=== PATIENT | male | born 1955 | race Hispanic/Latino ===

== ENCOUNTER 2018-03-26 14:16 | Inpatient (IN) | payer OTHER ==
[~2018-03-26] VITALS: Ht 431.8 cm; Wt 81.2 kg
[~2018-03-26 14:16] MED LIST: ALBUMIN (HUMAN) 25% 50 ML IV ONE; AMINOCAPROIC ACID 250 MG/ML 20 ML VIAL IV ONE; CALCIUM CHLORIDE 100 MG/ML 10 ML SYG IVP ONE; HEPARIN SODIUM 1000UNIT/ML 10ML VIAL IV ONE; MANNITOL 25% 50ML VIAL IV ONE; PHENYLEPHRINE HCL 10 MG/ML 1ML VIAL IV ONE; SODIUM BICARB 8.4% 50ML SYRINGE IVP ONE
[2018-03-26 15:19] VITALS: BP 147/79
[2018-03-26 16:40] LABS: INR 0.94 (0.85-1.15); PARTIAL THROMBOPLASTIN TIME 30.3 SEC (26.3-35.5); PROTHROMBIN TIME 9.9 SEC (9.6-11.6)
[2018-03-26] MEDS ORDERED: NITROGLYCERIN 5 MG/ML 10 ML VIAL IV ONE (17:08)
[2018-03-26] MEDS ORDERED: IOHEXOL-350 50ML VIAL IV ONE (17:08)
[2018-03-26] MEDS ORDERED: IOHEXOL 350 MG/ML 100ML INFUS..BTL IV ONE (17:08)
[2018-03-26] MEDS ORDERED: LIDOCAINE HCL-MPF 2% 5ML VIAL ONE (17:08)
[2018-03-26] MEDS ORDERED: SODIUM BICARB 50MEQ 50ML VIAL ONE (17:15)
[2018-03-26] MEDS ORDERED: MEPERIDINE-PF 25 MG/ML SYG ONE (17:23)
[2018-03-26] MEDS ORDERED: MIDAZOLAM HCL 1 MG/ML 2ML VIAL ONE (17:23)
[2018-03-26] MEDS: SODIUM CHLORIDE 0.9% 1000ML 1,000 ML IV SCH (18:31)
[2018-03-26 19:20] VITALS: BP 153/86
[2018-03-26] MEDS ORDERED: ALPRAZOLAM 0.25 MG TABLET PO PRN (20:00)
[2018-03-26 20:19] LABS: BASOPHILS % (AUTO) 0.5 % (0.0-5.0); EOSINOPHILS % (AUTO) 0.3 % (0.0-8.0); HEMATOCRIT 45.3 % (42-54); MEAN CORPUSCULAR HEMOGLOBIN 30.9 pg (27.0-33.0); MEAN CORPUSCULAR HGB CONC 33.5 g/dL (32.0-36.0); MEAN CORPUSCULAR VOLUME 92.2 fL (79-99); MONOCYTES % (AUTO) 5.7 % (3.0-13.0); NEUTROPHILS % (AUTO) 75.5 % (40.0-77.0); PLATELET COUNT (AUTO) 234 K/uL (130-400); RED BLOOD CELL COUNT(AUTO) 4.91 MIL/uL (4.50-6.20); RED CELL DISTRIBUTION WIDTH 13.5 % (11.0-15.5); WHITE BLOOD COUNT (AUTO) 10.2 K/uL (4.8-10.8)
[2018-03-26 20:29] LABS: INR 0.95 (0.85-1.15)
[2018-03-26 20:33] LABS: ALBUMIN 3.7 g/dL (3.5-5.0); BILIRUBIN,TOTAL 0.6 mg/dL (0.2-1.0); POTASSIUM 3.8 mmol/L (3.5-5.1)
[2018-03-26 20:36] LABS: HEMOGLOBIN A1C 5.6 % (4.0-6.0)
[2018-03-26] MEDS ORDERED: METOPROLOL TARTRATE 25 MG TAB PO SCH (21:00)
[2018-03-26] MEDS: ATORVASTATIN CALCIUM 40 MG TABLET PO SCH (21:35)
[2018-03-27] VITALS (27 sets, daily range): BP systolic 72–174; BP diastolic 37–90
[2018-03-27] MEDS: SODIUM CHLORIDE 0.9% 1000ML 1,000 ML IV SCH ×3 (03:59→12:55)
[2018-03-27] MEDS ORDERED: CEFUROXIME SODIUM 1.5 GM VIAL ONE (06:24)
[2018-03-27] MEDS ORDERED: BACITRACIN 50,000 UNIT VIAL ONE (06:55)
[2018-03-27] MEDS ORDERED: OCTYL 2-CYANOACRYLATE 1 EACH TP ONE (06:55)
[2018-03-27] MEDS ORDERED: PAPAVERINE HCL 30 MG/ML 2ML VIAL ONE (06:55)
[2018-03-27] MEDS ORDERED: NITROGLYCERIN 50 MG/D5% WATER 1 BOT ONE (06:58)
[2018-03-27] MEDS ORDERED: EPINEPHRINE 1 MG/ML 30ML VIAL IJ ONE (06:59)
[2018-03-27] MEDS ORDERED: ROCURONIUM 10MG/1ML SYR 10 MG/ML ML ONE ×2 (06:59→08:47)
[2018-03-27] MEDS ORDERED: SODIUM BICARB 50MEQ 50ML VIAL ONE ×2 (07:07→07:51)
[2018-03-27] MEDS ORDERED: CEFUROXIME SODIUM 1.5 GM VIAL IVP PRN (07:30)
[2018-03-27] MEDS ORDERED: ESMOLOL HCL 10 MG/ML 10 ML VIAL ONE (07:50)
[2018-03-27] MEDS ORDERED: EPINEPHRINE 1 MG/ML AMPULE ONE (07:51)
[2018-03-27] MEDS ORDERED: PROPOFOL 10 MG/ML 20ML VIAL IV ONE (07:51)
[2018-03-27] MEDS ORDERED: FENTANYL CITRATE PF 50 MCG/1 ML 20ML VIAL IJ ONE ×3 (07:51→11:21)
[2018-03-27] MEDS ORDERED: AMINOCAPROIC ACID 250 MG/ML 20 ML VIAL IV ONE (07:51)
[2018-03-27] MEDS ORDERED: NOREPINEPHRINE BITARTRATE 1 MG/1 ML ML IV ONE (07:51)
[2018-03-27] MEDS ORDERED: HEPARIN SODIUM 1000UNIT/ML 10ML VIAL ONE (07:51)
[2018-03-27] MEDS ORDERED: LIDOCAINE PF 2% 5ML ABBOJECT ONE ×2 (07:51→10:20)
[2018-03-27] MEDS ORDERED: MIDAZOLAM HCL 1 MG/ML 5ML VIAL ONE (07:51)
[2018-03-27] MEDS ORDERED: THROMBIN-JMI 5000 UNIT/VIAL TP ONE (08:40)
[2018-03-27] MEDS ORDERED: GLYCOPYRROLATE 1 MG/5 ML SYRINGE ONE (08:51)
[2018-03-27] MEDS ORDERED: ASPIRIN 81MG TAB.CHEW PO SCH (09:00)
[2018-03-27 09:17] LABS: ABG BASE EXCESS -1.7 mmol/L (-2.0-3.0); ABG HCO3 21.9 mmol/L (21.0-28.0); ABG OXYGEN SATURATION 99.3 % (95.0-99.0); ABG PCO2 34 mmHg (35-48)
[2018-03-27 10:19] LABS: ABG BASE EXCESS -0.5 mmol/L (-2.0-3.0); ABG HCO3 22.7 mmol/L (21.0-28.0); ABG OXYGEN SATURATION 98.7 % (95.0-99.0); ABG PCO2 32 mmHg (35-48)
[2018-03-27] MEDS ORDERED: SODIUM CHLORIDE 0.9% 1000ML 1,000 ML IV ONE (10:21)
[2018-03-27] MEDS ORDERED: AMIODARONE HCL 50 MG/ML 3 ML VIAL ONE (10:21)
[2018-03-27] MEDS ORDERED: PROTAMINE SULFATE 10 MG/ML 25ML VIAL IV ONE (10:27)
[2018-03-27 10:53] LABS: ABG BASE EXCESS 0.4 mmol/L (-2.0-3.0); ABG HCO3 23.8 mmol/L (21.0-28.0); ABG OXYGEN SATURATION 98.8 % (95.0-99.0); ABG PCO2 35 mmHg (35-48)
[2018-03-27] MEDS ORDERED: SODIUM CHLORIDE 0.9% 500ML 500 ML IV SCH (11:08)
[2018-03-27] MEDS ORDERED: PROPOFOL 1000 MG/100 ML 100 ML IV PRN (11:15)
[2018-03-27] MEDS ORDERED: INSULIN REGULAR, HUMAN 3ML 100 UNIT in SODIUM CHLORIDE 0.9% 99 ML IV SCH ×2 (11:15)
[2018-03-27] MEDS ORDERED: CALCIUM GLUCONATE 1 GM in SODIUM CHLORIDE 0.9% 50 ML IV PRN (11:15)
[2018-03-27] MEDS ORDERED: POTASSIUM PHOS 15 mMOL+NS250ML 250 ML IV PRN (11:15)
[2018-03-27] MEDS ORDERED: NOREPINEPHRINE 4MG/NS 250ML 250 ML IV PRN (11:15)
[2018-03-27] MEDS ORDERED: SODIUM BICARB 50MEQ 50ML VIAL IV PRN (11:15)
[2018-03-27] MEDS ORDERED: ALBUMIN (HUMAN) 5% 250 ML IV PRN (11:15)
[2018-03-27] MEDS ORDERED: SODIUM CHLORIDE 0.9% 10 ML VIAL IVP PRN (11:15)
[2018-03-27] MEDS ORDERED: NITROGLYCERIN 50 MG/D5% WATER 250 BOT IV SCH (11:15)
[2018-03-27] MEDS ORDERED: AMINOCAPROIC ACID 15,000 MG in SODIUM CHLORIDE 0.9% 250 ML IV SCH (11:15)
[2018-03-27] MEDS ORDERED: ACETAMINOPHEN 650 MG SUPPOSITORY RC PRN (11:15)
[2018-03-27] MEDS ORDERED: MORPHINE SULFATE 4 MG/1ML SYG IV PRN (11:15)
[2018-03-27] MEDS ORDERED: EPINEPHRINE 8 MG in SODIUM CHLORIDE 0.9% 250 ML IV PRN (11:15)
[2018-03-27] MEDS ORDERED: DEXTROSE 50%-WATER 50 ML DISP.SYRIN IV PRN (11:15)
[2018-03-27] MEDS ORDERED: SODIUM CHLORIDE 0.9% 250 ML IV PRN (11:15)
[2018-03-27] MEDS ORDERED: MORPHINE SULFATE 2 MG/ML 1ML SYG IV PRN (11:15)
[2018-03-27] MEDS ORDERED: GLUCAGON 1MG KIT 1 MG ML IM PRN (11:15)
[2018-03-27] MEDS ORDERED: MAGNESIUM 2GM PREMIX 50ML 50 ML IV PRN (11:15)
[2018-03-27 11:30] LABS: ABG BASE EXCESS -3.2 mmol/L (-2.0-3.0); ABG HCO3 20.2 mmol/L (21.0-28.0); ABG OXYGEN SATURATION 99.1 % (95.0-99.0); ABG PCO2 31 mmHg (35-48)
[2018-03-27 12:35] LABS: ABG BASE EXCESS -4.8 mmol/L (-2.0-3.0); ABG HCO3 18.4 mmol/L (21.0-28.0); ABG OXYGEN SATURATION 98.9 % (95.0-99.0); ABG PCO2 29 mmHg (35-48)
[2018-03-27 12:36] LABS: HEMATOCRIT 33.4 % (42-54); MEAN CORPUSCULAR HEMOGLOBIN 31.6 pg (27.0-33.0); MEAN CORPUSCULAR HGB CONC 34.4 g/dL (32.0-36.0); MEAN CORPUSCULAR VOLUME 91.8 fL (79-99); PLATELET COUNT (AUTO) 167 K/uL (130-400); RED BLOOD CELL COUNT(AUTO) 3.64 MIL/uL (4.50-6.20); RED CELL DISTRIBUTION WIDTH 12.9 % (11.0-15.5); WHITE BLOOD COUNT (AUTO) 14.3 K/uL (4.8-10.8)
[2018-03-27] MEDS ORDERED: SODIUM BICARB 8.4% 50ML SYRINGE ONE (12:37)
[2018-03-27] MEDS: ONDANSETRON HCL 4 MG/2 ML VIAL IV PRN (12:50)
[2018-03-27 12:51] LABS: MAGNESIUM 1.6 mg/dL (1.80-2.40); PHOSPHORUS 4.3 mg/dL (2.5-4.9); POTASSIUM 3.6 mmol/L (3.5-5.1)
[2018-03-27] MEDS: POTASSIUM CHLORIDE 20MEQ/100ML 100 ML IV PRN ×2 (12:54→15:12)
[2018-03-27 13:43] LABS: ABG OXYGEN SATURATION 98.6 % (95.0-99.0); ABG PCO2 41 mmHg (35-48)
[2018-03-27 15:41] LABS: ABG BASE EXCESS 1.4 mmol/L (-2.0-3.0); ABG HCO3 25.4 mmol/L (21.0-28.0); ABG OXYGEN SATURATION 98.5 % (95.0-99.0); ABG PCO2 38 mmHg (35-48)
[2018-03-27 16:46] LABS: ABG BASE EXCESS -0.8 mmol/L (-2.0-3.0); ABG HCO3 25.9 mmol/L (21.0-28.0); ABG OXYGEN SATURATION 97.7 % (95.0-99.0); ABG PCO2 51 mmHg (35-48)
[2018-03-27] MEDS: TRAMADOL HCL 50 MG TABLET PO PRN (18:15)
[2018-03-27] MEDS: ATORVASTATIN CALCIUM 40 MG TABLET PO SCH (20:15)
[2018-03-27] MEDS: FAMOTIDINE/PF 20 MG/2 ML VIAL IV SCH (21:13)
[2018-03-27] MEDS: CEFUROXIME SODIUM 1.5 GM VIAL IVP SCH (21:13)
[2018-03-28] VITALS (12 sets, daily range): BP systolic 103–130; BP diastolic 61–72
[2018-03-28 04:21] LABS: HEMATOCRIT 36.2 % (42-54); MEAN CORPUSCULAR HEMOGLOBIN 30.7 pg (27.0-33.0); MEAN CORPUSCULAR VOLUME 93.1 fL (79-99); PLATELET COUNT (AUTO) 184 K/uL (130-400); RED BLOOD CELL COUNT(AUTO) 3.89 MIL/uL (4.50-6.20); RED CELL DISTRIBUTION WIDTH 13.8 % (11.0-15.5)
[2018-03-28 04:43] LABS: CREATININE 1.4 mg/dL (0.5-1.5); MAGNESIUM 2.1 mg/dL (1.80-2.40); PHOSPHORUS 5.1 mg/dL (2.5-4.9); POTASSIUM 4.6 mmol/L (3.5-5.1)
[2018-03-28 05:09] LABS: INR 0.96 (0.85-1.15); PARTIAL THROMBOPLASTIN TIME 26.1 SEC (26.3-35.5); PROTHROMBIN TIME 10.1 SEC (9.6-11.6)
[2018-03-28] MEDS: TRAMADOL HCL 50 MG TABLET PO PRN ×4 (07:18→20:28)
[2018-03-28] MEDS: CEFUROXIME SODIUM 1.5 GM VIAL IVP SCH ×2 (07:18→20:27)
[2018-03-28] MEDS: FAMOTIDINE/PF 20 MG/2 ML VIAL IV SCH ×2 (07:18→20:27)
[2018-03-28] MEDS: ASPIRIN 81 MG EC TAB PO SCH (08:24)
[2018-03-28] MEDS: FUROSEMIDE 20 MG TABLET PO SCH ×2 (09:05→20:29)
[2018-03-28] MEDS ORDERED: ATOR40TA69 PO (10:18)
[2018-03-28] MEDS ORDERED: OMEP20CA10 PO (10:18)
[2018-03-28] MEDS: ATORVASTATIN CALCIUM 40 MG TABLET PO SCH (20:27)
[2018-03-28] MEDS: ACETAMINOPHEN 325 MG TAB PO PRN (20:29)
[2018-03-29] VITALS (13 sets, daily range): BP systolic 99–123; BP diastolic 58–88
[2018-03-29] MEDS: TRAMADOL HCL 50 MG TABLET PO PRN (03:14)
[2018-03-29 03:49] LABS: BASOPHILS % (AUTO) 0.1 % (0.0-5.0); HEMATOCRIT 29.9 % (42-54); LYMPHOCYTES % (AUTO) 12.7 % (21.0-51.0); MEAN CORPUSCULAR HGB CONC 33.3 g/dL (32.0-36.0); MEAN CORPUSCULAR VOLUME 93.2 fL (79-99); MONOCYTES % (AUTO) 8.1 % (3.0-13.0); NEUTROPHILS % (AUTO) 79.1 % (40.0-77.0); PLATELET COUNT (AUTO) 144 K/uL (130-400); RED BLOOD CELL COUNT(AUTO) 3.21 MIL/uL (4.50-6.20); RED CELL DISTRIBUTION WIDTH 13.5 % (11.0-15.5); WHITE BLOOD COUNT (AUTO) 16.7 K/uL (4.8-10.8)
[2018-03-29 04:02] LABS: CREATININE 1.2 mg/dL (0.5-1.5); POTASSIUM 3.9 mmol/L (3.5-5.1)
[2018-03-29] MEDS: POTASSIUM CHLORIDE 20MEQ/100ML 100 ML IV PRN (04:12)
[2018-03-29] MEDS: FUROSEMIDE 20 MG TABLET PO SCH ×2 (08:13→21:06)
[2018-03-29] MEDS: FAMOTIDINE/PF 20 MG/2 ML VIAL IV SCH ×2 (08:13→21:06)
[2018-03-29] MEDS: ASPIRIN 81 MG EC TAB PO SCH (08:13)
[2018-03-29] MEDS: INSULIN HUMULIN R 100 UNIT/ML 3ML SQ SCH ×3 (11:30→21:00)
[2018-03-29] MEDS ORDERED: AMIODARONE HCL 900 MG in DEXTROSE 5%-WATER 500 ML IV SCH (11:30)
[2018-03-29] MEDS ORDERED: AMIODARONE HCL 150 MG in DEXTROSE 5%-WATER 100 ML IV SCH (11:30)
[2018-03-29] MEDS: METOPROLOL TARTRATE 25 MG TAB PO SCH ×3 (11:45→21:06)
[2018-03-29] MEDS: ONDANSETRON HCL 4 MG/2 ML VIAL IV PRN (13:21)
[2018-03-29] MEDS: ATORVASTATIN CALCIUM 40 MG TABLET PO SCH (21:06)
[2018-03-29] MEDS: ENOXAPARIN SODIUM 30 MG/0.3 ML SQ SCH (21:07)
[2018-03-30 03:37] VITALS: BP 96/57
[2018-03-30] MEDS: INSULIN HUMULIN R 100 UNIT/ML 3ML SQ SCH ×4 (05:27→21:00)
[2018-03-30 07:54] VITALS: BP 102/45
[2018-03-30] MEDS: ASPIRIN 81 MG EC TAB PO SCH (08:41)
[2018-03-30] MEDS: FAMOTIDINE/PF 20 MG/2 ML VIAL IV SCH ×2 (08:41→21:00)
[2018-03-30] MEDS: METOPROLOL TARTRATE 25 MG TAB PO SCH ×2 (08:42→21:00)
[2018-03-30] MEDS: FUROSEMIDE 20 MG TABLET PO SCH ×2 (08:42→16:56)
[2018-03-30] MEDS: ENOXAPARIN SODIUM 30 MG/0.3 ML SQ SCH (08:43)
[2018-03-30 11:35] VITALS: BP 115/63
[2018-03-30] MEDS: TRAMADOL HCL 50 MG TABLET PO PRN ×2 (12:31→21:25)
[2018-03-30 16:19] VITALS: BP 104/59
[2018-03-30 19:00] VITALS: BP 103/62
[2018-03-30] MEDS: ATORVASTATIN CALCIUM 40 MG TABLET PO SCH (21:00)
[2018-03-30 23:00] VITALS: BP 91/60
[2018-03-31 03:00] VITALS: BP 101/66
[2018-03-31 04:01] LABS: BASOPHILS % (AUTO) 0.3 % (0.0-5.0); EOSINOPHILS % (AUTO) 1.4 % (0.0-8.0); HEMATOCRIT 26.2 % (42-54); LYMPHOCYTES % (AUTO) 24.5 % (21.0-51.0); MEAN CORPUSCULAR HGB CONC 33.6 g/dL (32.0-36.0); MEAN CORPUSCULAR VOLUME 92.4 fL (79-99); MONOCYTES % (AUTO) 9.2 % (3.0-13.0); NEUTROPHILS % (AUTO) 64.6 % (40.0-77.0); PLATELET COUNT (AUTO) 176 K/uL (130-400); RED BLOOD CELL COUNT(AUTO) 2.84 MIL/uL (4.50-6.20); RED CELL DISTRIBUTION WIDTH 13.2 % (11.0-15.5); WHITE BLOOD COUNT (AUTO) 12.1 K/uL (4.8-10.8)
[2018-03-31 04:25] LABS: MAGNESIUM 1.9 mg/dL (1.80-2.40); POTASSIUM 3.3 mmol/L (3.5-5.1)
[2018-03-31] MEDS: INSULIN HUMULIN R 100 UNIT/ML 3ML SQ SCH ×4 (05:57→20:35)
[2018-03-31 07:43] VITALS: BP 110/67
[2018-03-31] MEDS: FUROSEMIDE 20 MG TABLET PO SCH ×2 (07:59→17:08)
[2018-03-31] MEDS ORDERED: LIDOCAINE HCL-MPF 1% 2ML VIAL IVP PRN (08:30)
[2018-03-31] MEDS ORDERED: POTASSIUM CHLORIDE 20MEQ/100ML 100 ML IV PRN (08:30)
[2018-03-31] MEDS ORDERED: POTASSIUM CHLORIDE 10% ELIXIR 20 MEQ/15 ML UDCUP PO PRN (08:30)
[2018-03-31] MEDS: FAMOTIDINE/PF 20 MG/2 ML VIAL IV SCH ×2 (08:32→20:27)
[2018-03-31] MEDS: TRAMADOL HCL 50 MG TABLET PO PRN ×2 (08:32→20:26)
[2018-03-31] MEDS: METOPROLOL TARTRATE 25 MG TAB PO SCH ×2 (08:32→20:26)
[2018-03-31] MEDS: ASPIRIN 81 MG EC TAB PO SCH (08:32)
[2018-03-31] MEDS: ENOXAPARIN SODIUM 30 MG/0.3 ML SQ SCH (08:33)
[2018-03-31] MEDS: POTASSIUM CHLORIDE 20 MEQ ERTAB PO PRN ×3 (10:38→17:09)
[2018-03-31 11:11] VITALS: BP 107/54
[2018-03-31 16:37] VITALS: BP 106/54
[2018-03-31 19:54] VITALS: BP 121/59
[2018-03-31] MEDS: ATORVASTATIN CALCIUM 40 MG TABLET PO SCH (20:26)
[2018-03-31] MEDS: ACETAMINOPHEN 325 MG TAB PO PRN (20:35)
[2018-03-31 23:34] VITALS: BP 105/55
[2018-04-01 04:06] LABS: BASOPHILS % (AUTO) 0.6 % (0.0-5.0); EOSINOPHILS % (AUTO) 1.2 % (0.0-8.0); HEMATOCRIT 25.7 % (42-54); LYMPHOCYTES % (AUTO) 23.6 % (21.0-51.0); MEAN CORPUSCULAR HEMOGLOBIN 32.3 pg (27.0-33.0); MEAN CORPUSCULAR HGB CONC 35.1 g/dL (32.0-36.0); MONOCYTES % (AUTO) 11.4 % (3.0-13.0); NEUTROPHILS % (AUTO) 63.2 % (40.0-77.0); PLATELET COUNT (AUTO) 250 K/uL (130-400); RED BLOOD CELL COUNT(AUTO) 2.79 MIL/uL (4.50-6.20); RED CELL DISTRIBUTION WIDTH 12.9 % (11.0-15.5); WHITE BLOOD COUNT (AUTO) 11.4 K/uL (4.8-10.8)
[2018-04-01 04:13] LABS: POTASSIUM 3.7 mmol/L (3.5-5.1)
[2018-04-01 04:22] VITALS: BP 115/70
[2018-04-01] MEDS: INSULIN HUMULIN R 100 UNIT/ML 3ML SQ SCH (06:43)
[2018-04-01 07:53] VITALS: BP 128/71
[2018-04-01] MEDS: FUROSEMIDE 20 MG TABLET PO SCH (08:00)
[2018-04-01] MEDS ORDERED: ASPI-555 PO (09:01)
[2018-04-01] MEDS: FAMOTIDINE/PF 20 MG/2 ML VIAL IV SCH (10:12)
[2018-04-01] MEDS: ASPIRIN 81 MG EC TAB PO SCH (10:12)
[2018-04-01] MEDS: ENOXAPARIN SODIUM 30 MG/0.3 ML SQ SCH (10:12)
[2018-04-01] MEDS: METOPROLOL TARTRATE 25 MG TAB PO SCH (10:12)
[2018-04-01 10:58] VITALS: BP 131/60
== END 2018-04-01 14:15 | disposition home or self-care (01) | DRG 233 ==
LOC: OBSVTOIN 15:02 → 2BH 15:02 → 2CV 03-27 06:30 → 2BH 03-28 05:54 → 2CH 03-28 12:13 → 2DH 03-29 17:26
PROVIDERS: ADMIT Hospitalist; ATTEND Hospitalist
PROC: 4A023N7 Measurement of Cardiac Sampling and Pressure, Left Heart, Percutaneous Approach (ICD-10-PCS; 2018-03-26)
PROC: B2111ZZ Fluoroscopy of Multiple Coronary Arteries using Low Osmolar Contrast (ICD-10-PCS; 2018-03-26)
PROC: B2151ZZ Fluoroscopy of Left Heart using Low Osmolar Contrast (ICD-10-PCS; 2018-03-26)
PROC: 06BQ4ZZ Excision of Left Saphenous Vein, Percutaneous Endoscopic Approach (ICD-10-PCS; 2018-03-27)
PROC: 06BP4ZZ Excision of Right Saphenous Vein, Percutaneous Endoscopic Approach (ICD-10-PCS; 2018-03-27)
PROC: 5A02210 Assistance with Cardiac Output using Balloon Pump, Continuous (ICD-10-PCS; 2018-03-27)
PROC: 5A1221Z Performance of Cardiac Output, Continuous (ICD-10-PCS; 2018-03-27)
PROC: 02100Z9 Bypass Coronary Artery, One Artery from Left Internal Mammary, Open Approach (ICD-10-PCS; principal; 2018-03-27 08:00)
PROC: 021209W Bypass Coronary Artery, Three Arteries from Aorta with Autologous Venous Tissue, Open Approach (ICD-10-PCS; 2018-03-27 08:00)
DX: I25.110 Atherosclerotic heart disease of native coronary artery with unstable angina pectoris (principal); I21.4 Non-ST elevation (NSTEMI) myocardial infarction; E87.0 Hyperosmolality and hypernatremia; Z68.1 Body mass index [BMI] 19.9 or less, adult; E78.5 Hyperlipidemia, unspecified; I10 Essential (primary) hypertension; D72.829 Elevated white blood cell count, unspecified; E11.9 Type 2 diabetes mellitus without complications; I35.8 Other nonrheumatic aortic valve disorders; I48.91 Unspecified atrial fibrillation; K29.70 Gastritis, unspecified, without bleeding; K76.0 Fatty (change of) liver, not elsewhere classified; G30.9 Alzheimer's disease, unspecified; F02.80 Dementia in other diseases classified elsewhere, unspecified severity, without behavioral disturbance, psychotic disturbance, mood disturbance, and anxiety; R53.81 Other malaise; E66.9 Obesity, unspecified; R63.4 Abnormal weight loss; Z91.19 Patient's noncompliance with other medical treatment and regimen; Z82.49 Family history of ischemic heart disease and other diseases of the circulatory system; Z83.3 Family history of diabetes mellitus; Z82.0 Family history of epilepsy and other diseases of the nervous system
CPT/HCPCS: 36415; 71045; 80048; 80053; 80061; 80339; 82330; 82435; 82803; 82947; 82948; 83036; 83605; 83735; 84100; 84132; 84295; 85018; 85025; 85027; 85347; 85610; 85730; 86850; 86900; 86901; 86922; 93005; 93458; 93880; 94002; 94010; 94150; 97039; 99156; 99157; A4218; A7048; C1760; C1894; J0171; J0282; J0697; J1644; J1650; J1815; J2001; J2150; J2175; J2250; J2270; J2370; J2405; J2440; J2704; J2720; J3010; J3475; J3480; J3490; J7030; J7040; J7060; J7120; P9045; P9047; Q9967

== ENCOUNTER → 2024-09-09 | Outpatient (CLI) | payer MEDICARE ==
[~2024-09-09] MED LIST changes: -ALBUMIN (HUMAN) 25% 50 ML IV ONE; -AMINOCAPROIC ACID 250 MG/ML 20 ML VIAL IV ONE; +ASPI-556 PO; +ATOR40TA69 PO; -CALCIUM CHLORIDE 100 MG/ML 10 ML SYG IVP ONE; -HEPARIN SODIUM 1000UNIT/ML 10ML VIAL IV ONE; +IOHEXOL 350 MG/ML 100ML INFUS..BTL IV ONE; -MANNITOL 25% 50ML VIAL IV ONE; +OMEP20CA12 PO; -PHENYLEPHRINE HCL 10 MG/ML 1ML VIAL IV ONE; -SODIUM BICARB 8.4% 50ML SYRINGE IVP ONE
--- NOTE | 2024-09-09 10:18 | HMCIMG ---
CT CARDIAC ANGIO W/CONT. CCTA HISTORY: Chest pain COMPARISON: None TECHNIQUE: Multiple sequential axial images of the chest were obtained along with the CT angiogram of the chest study. Patient was given 100 cc of Omnipaque through intravenous route. FINDINGS: There is no evidence of pulmonary nodule or parenchymal disease. No pleural effusion or pericardial effusion is seen. There is no evidence of pneumothorax. There are normal size mediastinal and hilar lymph nodes. The heart is not enlarged. Coronary arterial calcifications are seen. Poststernotomy changes are seen. Degenerative changes of the thoracolumbar spine are present. IMPRESSION: 1. No evidence of pulmonary nodule or effusion is seen. Please see CT angiogram report of coronary arteries.
== END | disposition home or self-care (01) ==
LOC: RAH 08:34
PROVIDERS: ATTEND Internal Medicine Cardiovascular Disease
DX: I25.10 Atherosclerotic heart disease of native coronary artery without angina pectoris (principal); R07.9 Chest pain, unspecified; M47.815 Spondylosis without myelopathy or radiculopathy, thoracolumbar region
CPT/HCPCS: 75574; Q9967